=== PATIENT | female | born 1975 | race American Indian/Alaskan Native ===

== ENCOUNTER 2019-01-16 05:48 | Day surgery (SDC) | payer MEDICAID ==
[2019-01-16] MEDS ORDERED: LACTATED RINGERS 1,000 ML IV SCH (06:23)
[2019-01-16] MEDS ORDERED: NEURONTIN PO NR (07:00)
[2019-01-16] MEDS ORDERED: VERSED IV NR (07:00)
[2019-01-16] MEDS ORDERED: SUBLIMAZE ONE (07:12)
[2019-01-16] MEDS ORDERED: XYLOCAINE MPF 2% ONE (07:12)
[2019-01-16] MEDS ORDERED: ZEMURON IV ONE (07:12)
[2019-01-16] MEDS ORDERED: VERSED ONE (07:12)
[2019-01-16] MEDS ORDERED: DIPRIVAN 10 MG/ML IV ONE (07:13)
--- NOTE | 2019-01-16 07:14 | Short Stay Summary ---
Short Stay Documentation Date of service: 01/16/19 Narrative H&P: 43y/o black female with undesired fertility. The patient declines other contraceptive options. She is aware of the risks - History Principal diagnosis: Undesired fertility Past Medical History: No medical history Past Surgical History: Other (gastric sleeve) Social history: single - Allergies and Medications Current Medications: Allergies No Known Allergies Allergy (Unverified 01/15/19 14:46) Home Medications Medication Instructions Recorded Confirmed Last Taken Type No Known Home Medications [No 01/15/19 01/15/19 Unknown History Reported Home Medications] Active Medications Celecoxib (Celebrex) 200 mg PO PREOP NR Stop: 01/16/19 15:00 Gabapentin (Neurontin) 300 mg PO PREOP NR Stop: 01/16/19 13:00 Lactated Ringer's (Lactated Ringers) 1,000 mls @ 100 mls/hr IV DIRECT SALLY Stop: 01/16/19 23:59 Midazolam HCl (Versed) 2 mg IV PREOP NR Stop: 01/16/19 23:59 - Physical exam General appearance: no acute distress Integumentary: no rash HEENT: Atraumatic Lungs: Clear to auscultation Breasts: deferred Heart: Regular rate Gastrointestinal: normal Female Genitourinary: deferred Rectal Exam: deferred - Brief post op/procedure progress note Date of procedure: 01/16/19 Pre-op diagnosis: undesired fertility Post-op diagnosis: same Procedure: Laparoscopic bilateral tubal ligation with Filshie clips Anesthesia: BAKARIA Surgeon: TONY BRENNAN Estimated blood loss: minimal Pathology: none Condition: stable - Hospital course Hospital course: The patient was admitted the day of surgery underwent a laparoscopic bilateral tubal ligation with Filshie clips. Please see operative note for details of surgery. Her postoperative course was uneventful. - Disposition Condition at discharge: Good Disposition: [id number] TO HOME OR SELFCARE Short Stay Discharge Plan Activity: other (pelvic rest for 1 week) Diet: regular Additional Instructions: Follow-up is not required Follow-up as needed Prescriptions: Ibuprofen [Motrin] 800 mg PO Q8HR PRN #60 tablet PRN Reason: Pain, Mild (1-3) oxyCODONE /ACETAMINOPHEN [Percocet 5/325] 1 tab PO Q6HR PRN #20 tablet PRN Reason: Pain
[2019-01-16] MEDS ORDERED: MARCAINE 0.5% INFILTRATI ONE ×2 (07:18→07:55)
[2019-01-16] MEDS ORDERED: NACL 0.9% IR ONE (07:55)
[2019-01-16] MEDS ORDERED: DILAUDID IV PRN ×2 (08:00→09:00)
--- NOTE | 2019-01-16 08:00 | Anesthesia Day of Surgery ---
Anesthesia Day of Surgery - Day of Surgery Patient Examined: Yes Patient H&P Reviewed: Yes Patient is NPO: Yes
--- NOTE | 2019-01-16 08:00 | Anesthesia Consultation ---
Anesthesia Consult and Med Hx Date of service: 01/16/19 - Airway Anesthetic Teeth Evaluation: Good ROM Head & Neck: Adequate Mental/Hyoid Distance: Adequate Mallampati Class: Class III Intubation Access Assessment: Possibly Difficult - Pulmonary Exam CTA: Yes - Cardiac Exam Cardiac Exam: RRR - Pre-Operative Health Status ASA Pre-Surgery Classification: ASA2 Proposed Anesthetic Plan: General - Pulmonary Hx Smoking: No Hx Respiratory Symptoms: No - Cardiovascular System Hx Hypertension: No Hx Heart Attack/AMI: No Hx Cardia Arrhythmia: No - Central Nervous System CVA: No Hx Psychiatric Problems: No - Gastrointestinal Hx Gastroesophageal Reflux Disease: No (take omeprazole since gastric sleeve surgery but denies GERD symptoms) - Endocrine Hx Renal Disease: No Hx Liver Disease: No Hx Insulin Dependent Diabetes: No Hx Non-Insulin Dependent Diabetes: No Hx Thyroid Disease: No - Other Systems Hx Alcohol Use: Yes (Occas) Hx Cancer: No Hx Obesity: Yes - Additional Comments Anesthesia Medical History Comments: No hx anesthetic complications.
--- NOTE | 2019-01-16 08:19 | Operative Report ---
Operative Report Operative Report: Date of surgery: 01/16/2019 Preoperative diagnosis: Unwanted fertility Postoperative diagnosis: Same as above Procedure: Laparoscopic bilateral tubal ligation with Filshie clips Surgeon: Evelyne Anders M.D. Anesthesia: General endotracheal anesthesia Estimated blood loss: Minimal Findings: Normal tubes uterus and ovaries Indication: Were 3-year-old black female with undesired fertility. The patient elected for permanent sterilization. Procedure: The patient was taken to the operating room and given general endotracheal anesthesia without complication. The patient is prepped and draped in a normal sterile fashion. A bivalve speculum was placed in the patient's vagina and a single-tooth tenaculum was placed on the anterior lip of the cervix .A uterine acorn manipulator was placed, and the bivalve speculum was then removed. Attention was then turned to the patient's abdomen where a 5 mm infraumbilical skin incision was then made. A Veress needle was placed and peritoneal entry was verified water-filled syringe. Insufflation of the peritoneal cavity was performed with CO2 gas. A 5 mm trocar was placed and the laparoscope was then inserted. The patient was then placed in Trendelenburg. A 7 mm suprapubic skin incision was then made. Under direct visualization a 7 mm trocar was then placed. General survey of the patient's abdomen revealed normal uterus tubes and ovaries. The fallopian tube was then followed out to the fimbriated end. A Filshie clip was placed, on the ampullary portion of the tube. This was performed on the contralateral side as well. The 7 mm trocar was then removed. The pneumoperitoneum was then released. The 5 mm trocar laparoscope was then removed. The skin incisions were then closed with 4-0 Monocryl. The incisions were injected with quarter percent Marcaine. Dressings were applied to the incision. The vaginal instruments were then removed atraumatically. Then successfully extubated and taken to the recovery room. All sponge laps and needle counts were correct 2.
[2019-01-16] MEDS ORDERED: ZOFRAN IV PRN (09:00)
[2019-01-16 09:30] VITALS: BP 117/79
--- NOTE | 2019-01-16 10:08 | Post Anesthesia Evaluation ---
- Post Anesthesia Evaluation Patient Participated: Yes Airway Patent: Yes Stable Respiratory Function: Yes Nausea/Vomiting: No Temp > 96.8F: Yes Pain Manageable: Yes Adequeate Hydration: Yes Anesthesia Complications: No Block Receding Appropriately: Not Applicable Patient on Ventilator: No
== END 2019-01-16 05:49 | disposition home or self-care (01) ==
LOC: OR 05:48
PROVIDERS: ATTEND Obstetrics & Gynecology
DX: Z30.2 Encounter for sterilization (principal); G43.909 Migraine, unspecified, not intractable, without status migrainosus; K21.9 Gastro-esophageal reflux disease without esophagitis; E66.9 Obesity, unspecified; Z68.39 Body mass index [BMI] 39.0-39.9, adult; Z72.89 Other problems related to lifestyle; Z79.899 Other long term (current) drug therapy; Z98.890 Other specified postprocedural states
CPT/HCPCS: 58671; 81025; J2250; J2704; J3010; J7120